=== PATIENT | male | born 1950 | race American Indian/Alaskan Native ===

== ENCOUNTER 2017-01-02 09:56 | Outpatient (CLI) | payer BC ==
[2017-01-02 10:35] LABS: Basophils % (Auto) 0.6 % (0.0-1.8); Eosinophils % (Auto) 0.2 % (0.0-4.3); Hematocrit 32.9 % (35.5-45.6); Hemoglobin 10.2 gm/dl (11.8-15.2); Mean Corpuscular HGB Conc 31 % (32-34); Mean Corpuscular Volume 73 fl (84-94); Platelet Count 297 K/mm3 (140-440); Red Blood Count 4.51 M/mm3 (3.65-5.03); Red Cell Distribution Width 18.8 % (13.2-15.2)
[2017-01-02 10:50] LABS: Mean Corpuscular Hemoglobin 23 pg (28-32)
[2017-01-02 11:06] LABS: Alanine Aminotransferase 14 units/L (7-56); Albumin 3.9 g/dL (3.9-5); Albumin/Globulin Ratio 1.1 %; Alkaline Phosphatase 63 units/L (35-129); Anion Gap 17 mmol/L; BUN/Creatinine Ratio 11.81; Blood Urea Nitrogen 13 mg/dL (9-20); Calcium 10.1 mg/dL (8.4-10.2); Carbon Dioxide 23 mmol/L (22-30); Chloride 106.3 mmol/L (98-107); Cholesterol 170 mg/dL (50-199); Glucose 74 mg/dL (75-100); HDL Cholesterol 56 mg/dL (40-59); LDL Cholesterol,Direct 80 mg/dL (50-130); Potassium 4.1 mmol/L (3.6-5.0); Sodium 142 mmol/L (137-145); Total Protein 7.3 g/dL (6.3-8.2); Triglycerides 171 mg/dL (2-149)
[2017-01-02 11:16] LABS: Prostate Specific Antigen 4.37 ng/mL (0.00-4.00)
== END 2017-01-02 09:57 | disposition home or self-care (01) ==
LOC: LAB 09:56
PROVIDERS: ATTEND Family Medicine
DX: I10 Essential (primary) hypertension (principal); E78.2 Mixed hyperlipidemia; K21.0 Gastro-esophageal reflux disease with esophagitis
CPT/HCPCS: 36415; 80053; 80061; 84153; 84436; 84443; 84550; 85025; 86140; 86803

== ENCOUNTER 2017-11-06 21:21 | Emergency (ER) | payer BC ==
--- NOTE | 2017-11-06 23:04 | XRay Report ---
FINAL REPORT PROCEDURE: XR KNEE 3V LT TECHNIQUE: LEFT knee radiographs, AP, lateral and sunrise views. CPT 40085 HISTORY: left knee pain COMPARISON: No prior studies are available for comparison. FINDINGS: Fracture (s) and/or Dislocation(s): None . Alignment: Normal . Joint space(s): Normal . Soft tissues: Normal . Bone mineralization: Mild degree osteophyte formation is noted involving tibial femoral and patellofemoral compartments.. Foreign bodies: None . IMPRESSION: No acute fracture Mild degree osteoarthritis.
--- NOTE | 2017-11-07 01:11 | Emergency Department Report ---
ED Extremity Problem HPI - General Chief complaint: Extremity Injury, Lower Stated complaint: LT KNEE PAIN Time Seen by Provider: 11/07/17 01:04 Source: patient Mode of arrival: Ambulatory Limitations: No Limitations - History of Present Illness Initial comments: 67-year-old -[place] male comes in for left knee pain 1 week. Patient reports the pain is on initial getting but none during ambulation. Patient reports has no relief from ibuprofen. Patient does work driving a bus and moving cars. He denies any recent trauma. MD Complaint: extremity pain, joint paint - Related Data Home Medications Medication Instructions Recorded Confirmed Last Taken Quinapril HCl [Accupril] 1 tab PO DAILY 11/06/17 11/06/17 Unknown amLODIPine 5 mg PO DAILY 11/06/17 11/06/17 Unknown Previous Rx's Medication Instructions Recorded Last Taken Type Naproxen [Naprosyn TAB] 500 mg PO BID #60 tablet 11/07/17 Unknown Rx Allergies Allergy/AdvReac Type Severity Reaction Status Date / Time codeine Allergy Seizure Unverified 01/02/17 09:57 ED Review of Systems ROS: Stated complaint: LT KNEE PAIN Other details as noted in HPI Constitutional: denies: chills, fever Eyes: denies: eye pain, eye discharge, vision change ENT: denies: ear pain, throat pain Respiratory: denies: cough, shortness of breath, wheezing Cardiovascular: denies: chest pain, palpitations Endocrine: no symptoms reported Gastrointestinal: denies: abdominal pain, nausea, diarrhea Genitourinary: denies: urgency, dysuria Musculoskeletal: arthralgia Skin: denies: rash, lesions Neurological: denies: headache, weakness, paresthesias Psychiatric: denies: anxiety, depression Hematological/Lymphatic: denies: easy bleeding, easy bruising ED Past Medical Hx - Past Medical History Hx Hypertension: Yes - Surgical History Past Surgical History?: No - Social History Smoking Status: Never Smoker Substance Use Type: None - Medications Home Medications: Home Medications Medication Instructions Recorded Confirmed Last Taken Type Quinapril HCl [Accupril] 1 tab PO DAILY 11/06/17 11/06/17 Unknown History amLODIPine 5 mg PO DAILY 11/06/17 11/06/17 Unknown History Naproxen [Naprosyn TAB] 500 mg PO BID #60 tablet 11/07/17 Unknown Rx ED Physical Exam - General Limitations: No Limitations General appearance: alert, in no apparent distress - Head Head exam: Present: atraumatic, normocephalic - Eye Eye exam: Present: normal appearance - Respiratory Respiratory exam: Present: normal lung sounds bilaterally. Absent: respiratory distress - Cardiovascular Cardiovascular Exam: Present: regular rate, normal rhythm. Absent: systolic murmur, diastolic murmur, rubs, gallop - Expanded Lower Extremity Exam Left Hip exam: Present: normal inspection, full ROM Upper Leg exam: Present: normal inspection, full ROM Knee exam: Present: normal inspection, full ROM, crepidus. Absent: tenderness, swelling Lower Leg exam: Present: normal inspection, full ROM. Absent: tenderness, swelling Ankle exam: Present: normal inspection, full ROM. Absent: tenderness, swelling Foot/Toe exam: Present: normal inspection Gait: Positive: observed and normal - Back Exam Back exam: Present: normal inspection - Neurological Exam Neurological exam: Present: alert, oriented X3 - Psychiatric Psychiatric exam: Present: normal affect, normal mood - Skin Skin exam: Present: warm, dry, intact, normal color. Absent: rash ED Course Vital Signs 11/06/17 22:15 Temperature 98.1 F Pulse Rate 84 Respiratory 16 Rate Blood Pressure 167/93 O2 Sat by Pulse 96 Oximetry ED Medical Decision Making - Radiology Data Radiology results: report reviewed, image reviewed IMPRESSION: No acute fracture Mild degree osteoarthritis. - Medical Decision Making Patient's been evaluated by this provider fast track. X-ray shows mild degenerative changes. No dislocation no fractures. Discussed with family and patient that this appears to be arthritis treatment issues E NSAIDs I would discharge patient on naproxen 500 mg twice a day. Discussed the patient he should follow up with orthopedics for further evaluation and treatment options. Critical care attestation.: If time is entered above; I have spent that time in minutes in the direct care of this critically ill patient, excluding procedure time. ED Disposition Clinical Impression: Arthritis of left knee Disposition: DC-01 TO HOME OR SELFCARE Is pt being admited?: No Does the pt Need Aspirin: No Condition: Stable Instructions: Osteoarthritis (ED), Degenerative Disc Disease (ED) Additional Instructions: Take pain medication as prescribed. Please take her blood pressure medicine when you get home. Please follow-up with orthopedics for further evaluation. Prescriptions: Naproxen [Naprosyn TAB] 500 mg PO BID #60 tablet Referrals: NAIDA TUCKER JR, MD [Primary Care Provider] - 3-5 Days DEJAN BETANCOURT MD [Staff Physician] - 3-5 Days WENDY MENDEZ MD [Staff Physician] - 3-5 Days Forms: Work/School Release Form(ED), Accompanied Note
[2017-11-07 01:33] VITALS: BP 158/87
== END 2017-11-07 01:33 | disposition home or self-care (01) ==
LOC: EEVIPCON 21:21 → ED 21:21
DX: M25.562 Pain in left knee (principal); I10 Essential (primary) hypertension; Z88.8 Allergy status to other drugs, medicaments and biological substances
CPT/HCPCS: 99283

== ENCOUNTER 2017-12-24 10:18 | Outpatient (CLI) | payer BC ==
--- NOTE | 2017-12-26 08:19 | Magnetic Resonance Report ---
MRI LEFT KNEE WITHOUT CONTRAST: 12/24/17 10:34:00 CLINICAL: Left knee pain. TECHNIQUE: Sagittal proton density, sagittal T2 fat sat, coronal T1, coronal and axial proton density fat sat and sagittal gradient T2*sequences on a 1.5 Elaine magnet. FINDINGS: Complex tear of the posterior horn medial meniscus with signal extending to both superior and inferior articular surfaces. No displaced fragment. The lateral meniscus is intact. Intact anterior cruciate ligament and intact posterior cruciate ligament. Marrow edema of the medial tibial plateau but no fracture. Moderate osteoarthritis with narrowing of both medial and lateral joint spaces with small osteophytes. Full-thickness thinning of the medial femoral cartilage. The lateral femoral cartilage is intact. Chondromalacia of the patella with full-thickness thinning of the lateral patellar cartilage. The collateral ligaments are intact. A moderate size knee joint effusion. The patellar tendon and retinaculum are intact. The popliteal veins are greatly distended with abnormal T2 hyperintense signal and the popliteal vein is distended with mixed signal. The peroneal veins are nondistended. Focal mixed signal in the medial aspect of the medial head of the gastrocnemius muscle suggests muscle injury with a small hematoma. Moderate subcutaneous soft tissue edema at the level of the proximal tibia. IMPRESSION: 1. Complex tear of the posterior horn medial meniscus. 2. Bone contusion versus chronic marrow edema of the medial tibial plateau. 3. Moderate osteoarthritis of the medial and lateral joints. 4. Chondromalacia patellae. 5. No ligamentous injury. 6. Distended popliteal veins are consistent with venous stasis but also suggest the possibility of deep vein thrombosis.
== END 2017-12-24 10:19 | disposition home or self-care (01) ==
LOC: MRI 10:18
PROVIDERS: ATTEND Orthopaedic Surgery
DX: M17.12 Unilateral primary osteoarthritis, left knee (principal); M22.42 Chondromalacia patellae, left knee; I10 Essential (primary) hypertension; S83.242A Other tear of medial meniscus, current injury, left knee, initial encounter; X58.XXXA Exposure to other specified factors, initial encounter; Y93.89 Activity, other specified; Y92.89 Other specified places as the place of occurrence of the external cause; Y99.8 Other external cause status
CPT/HCPCS: 73721

== ENCOUNTER 2018-01-20 07:13 | Day surgery (SDC) | payer BC ==
[2018-01-20] MEDS ORDERED: NACL BACTERIOSTATIC INFILTRATI ONE (07:42)
[2018-01-20] MEDS ORDERED: DEMEROL IV PRN (07:45)
[2018-01-20] MEDS ORDERED: TORADOL IV PRN (07:45)
[2018-01-20] MEDS ORDERED: ZOFRAN IV PRN (07:45)
[2018-01-20] MEDS ORDERED: DILAUDID IV PRN (07:45)
--- NOTE | 2018-01-20 07:47 | Anesthesia Consultation ---
Anesthesia Consult and Med Hx Date of service: 01/20/18 - Airway Anesthetic Teeth Evaluation: Good ROM Head & Neck: Adequate Mental/Hyoid Distance: Adequate Mallampati Class: Class II Intubation Access Assessment: Probably Good - Pulmonary Exam CTA: Yes - Cardiac Exam Cardiac Exam: RRR - Pre-Operative Health Status ASA Pre-Surgery Classification: ASA2 Proposed Anesthetic Plan: General (GA with LMA ok, GERD contolled) - Pulmonary Hx Smoking: No Hx Sleep Apnea: No (ROYA PRE SCREEN HIGH RISK.) - Cardiovascular System Hx Hypertension: Yes (X 10 YRS) - Other Systems Hx Cancer: No
--- NOTE | 2018-01-20 07:47 | Anesthesia Day of Surgery ---
Anesthesia Day of Surgery - Day of Surgery Patient Examined: Yes Patient H&P Reviewed: Yes Patient is NPO: Yes
[2018-01-20] MEDS ORDERED: DIPRIVAN 10 MG/ML IV ONE (07:55)
[2018-01-20] MEDS ORDERED: REGLAN ONE (07:55)
[2018-01-20] MEDS ORDERED: XYLOCAINE MPF 2% ONE (07:55)
[2018-01-20] MEDS ORDERED: SUBLIMAZE ONE (07:55)
[2018-01-20] MEDS ORDERED: VERSED IV NR (08:00)
[2018-01-20] MEDS ORDERED: NEURONTIN PO NR (08:00)
[2018-01-20] MEDS ORDERED: LACTATED RINGERS 1,000 ML IV SCH ×2 (08:00)
[2018-01-20] MEDS ORDERED: NACL 0.9% IR ONE ×2 (08:25)
[2018-01-20] MEDS ORDERED: MARCAINE-EPI/PF 0.5%-1:200,000 IJ ONE (08:25)
[2018-01-20] MEDS ORDERED: DEPO-MEDROL INTRA-ARTI ONE (08:25)
[2018-01-20] MEDS ORDERED: ANCEF/STERILE WATER 2 GM/20 ML IV NR (09:00)
[2018-01-20] MEDS ORDERED: LACTATED RINGERS 1,000 ML ONE (09:02)
[2018-01-20] MEDS ORDERED: MARCAINE-EPI 0.5%-1:200,000 INFILTRATI ONE (09:02)
[2018-01-20] MEDS ORDERED: DEPO-MEDROL ONE (09:02)
--- NOTE | 2018-01-20 11:55 | Post Anesthesia Evaluation ---
- Post Anesthesia Evaluation Patient Participated: Yes Airway Patent: Yes Stable Respiratory Function: Yes Nausea/Vomiting: No Temp > 96.8F: Yes Pain Manageable: Yes Adequeate Hydration: Yes Anesthesia Complications: No
[2018-01-20 14:28] VITALS: BP 148/93
--- NOTE | 2018-01-20 14:32 | Procedure Note ---
Date of procedure: 01/20/18 Pre-op diagnosis: internal derangement left knee Post-op diagnosis: other (medial meniscus tear grade 3 chondromalacia medial compartment) Procedure: Arthroscopy left knee partial medial meniscectomy and abrasion chondroplasty medial compartment Procedure The patient was brought to the OR and placed on the OR table in supine position following induction and intubation by anesthesia the patient's left lower extremity was prepped and draped in the usual sterile manner. A timeout procedure was done to identify the patient and the correct operative site. The leg was exsanguinated followed by inflation of the pneumatic tourniquet to 300 mmHg routine arthroscopic portals were made about the patella tendon following introduction of the arthroscope and insufflation of the joint with normal saline solution examination revealed these findings the patient was noted to have grade 3-3 chondromalacia involving both the medial femoral condyle and a corresponding tibial articular surfaces there is also a horizontal cleavage tear noted in the posterior horn of the medial meniscus the anterior cruciate ligament was intact the lateral compartment was explored the patient was there is having a intact lateral meniscus and some grade 1-2 changes in the articular surface in the lateral compartment following this the suprapatellar pouch was examined no loose bodies or other pathology was seen here. The arthroscopic shaver was introduced into the knee joint nexy the articular cartilage was then debrided back to healthy-appearing cartilage tissue followed by debridement of the posterior horn of the medial meniscus using a combination of biting forceps and the 4.0 shaver again care was taken to remove only tissue did appear to flap in and out of the knee joint following debridement the knee was copiously irrigated with saline solution the arthroscope was removed and the stab wound were repaired A mixture of Depo-Medrol and Marcaine was injected followed by placing routine postoperative dressings and Brett wraps to the thigh in the area the patient tolerated the procedure there were no complications he was sent to postanesthesia recovery in stable condition Anesthesia: GETA Surgeon: WENDY MENDEZ Estimated blood loss: none Pathology: list Condition: stable Disposition: PACU
== END 2018-01-20 11:25 | disposition home or self-care (01) ==
LOC: OR 07:13
PROVIDERS: ATTEND Orthopaedic Surgery
DX: S83.242A Other tear of medial meniscus, current injury, left knee, initial encounter (principal); M94.262 Chondromalacia, left knee; M23.92 Unspecified internal derangement of left knee; I10 Essential (primary) hypertension; K21.9 Gastro-esophageal reflux disease without esophagitis; X58.XXXA Exposure to other specified factors, initial encounter; Y93.89 Activity, other specified; Y92.89 Other specified places as the place of occurrence of the external cause; Y99.8 Other external cause status; Z88.5 Allergy status to narcotic agent
CPT/HCPCS: 29882; A4217; J0690; J1030; J1885; J2250; J2405; J2704; J2765; J3010; J7120; J1040

== ENCOUNTER 2018-06-18 07:47 | Day surgery (SDC) | payer BC ==
[2018-06-18] MEDS ORDERED: XYLOCAINE 2% INFILTRATI ONE (08:20)
[2018-06-18] MEDS ORDERED: DEPO-Medrol ONE (08:21)
[2018-06-18] MEDS ORDERED: MARCAINE 0.5% INFILTRATI ONE ×3 (08:21→08:47)
[2018-06-18 08:27] VITALS: BP 152/84
[2018-06-18] MEDS ORDERED: XYLOCAINE 1% 20 mL ONE ×2 (08:40→08:42)
[2018-06-18] MEDS ORDERED: XYLOCAINE 1% 20 mL INFILTRATI ONE ×2 (08:46)
--- NOTE | 2018-06-18 09:18 | Procedure Note ---
Date of procedure: 06/18/18 Pre-op diagnosis: chronic left knee pain Post-op diagnosis: same Procedure: Left Geniculate Nerve Block under C-arm fluroscopy procedure The patient taken to the radiology fluroscopy suite where he was place on the table supine with padded triangular pad placed along the potileal fossa. The left knee prepped and draped in usual sterile fashion. 22-gauge spinal needle used to locate areas for injection, the medial and lateral supracondylar ridges as well as the medial border of the proximal tibia. These areas were anesthized using lidocaine 1% followed by placement of spinal needle near the medial, and lateral geniculate nerves. A mixture of marcaine and lidocaine injected into the deeper structures. There were no complications noted and he tolerated well. Anesthesia: local Surgeon: WENDY MENDEZ Estimated blood loss: minimal Pathology: none Condition: stable Disposition: observation
--- NOTE | 2018-06-19 15:43 | XRay Report ---
XRAY LEFT KNEE FOUR INTRAOPERATIVE FLUOROSCOPIC VIEWS: 06/18/18 07:47:00 CLINICAL: Left knee pain. FINDINGS: No fracture or dislocation. The joint spaces are preserved. Initial images show placement of a needle just superior to the medial condyle. Subsequent images demonstrate a needle just superior to the lateral femoral condyle and the final image shows a needle projected over the proximal tibia at the level of the tibial tubercle. For more detail, please refer to the operative report.
--- NOTE | 2018-12-22 14:05 | History and Physical Report ---
History of Present Illness Date of examination: 06/18/18 Chief complaint: This 67-year-old male with a history of left knee pain and swelling patient recently underwent left left knee arthroscopy with partial medial meniscectomy and abrasion chondroplasty postoperatively patient continued to complain of pain mainly along the medial joint line therefore recommendations were made for a geniculate nerve block and possible radiofrequency ablation Past History Past Medical History: arthritis, hypertension Past Surgical History: arthroscopy Social history: no significant social history Family history: no significant family history Medications and Allergies Allergies Allergy/AdvReac Type Severity Reaction Status Date / Time codeine Allergy Anaphylaxis Verified 08/12/18 11:37 Home Medications Medication Instructions Recorded Confirmed Last Taken Type Quinapril HCl [Accupril] 1 tab PO DAILY 11/06/17 08/12/18 08/11/18 21:00 History Omeprazole 40 mg PO DAILY 01/13/18 08/12/18 08/11/18 21:00 History Glucosamine HCl 500 mg PO QDAY 01/20/18 08/12/18 06/21/18 09:00 History amLODIPine/ATORVASTATIN [Caduet 5 1 each PO QDAY 01/20/18 08/12/18 08/11/18 21:00 History mg-10 mg Tablet] HYDROcodone/APAP 5-325 [Fruita 1 each PO Q4HR PRN #20 tablet 06/23/18 08/12/18 Unknown Rx 5-325 mg TAB] Apixaban [Eliquis] 5 mg PO BID #60 tab.ds.pk 08/14/18 Unknown Rx Apixaban [Eliquis] 10 mg PO BID 7 Days tablet 08/14/18 Unknown Rx Ferrous Gluconate [Fergon 325 MG 325 mg PO QDAY #30 tablet 08/14/18 Unknown Rx tab] Physical Examination - Physical exam Narrative exam: PHYSICAL examination significant muscles, findings relates to the left lower extremity hair patient's nausea have tenderness along the medial joint line with us valgus deformity active range of motion full there is crepitus noted on active and passive range of motion ligaments appeared stable Eyes: PERRL ENT: Positive: clear oral mucosa Respiratory effort: normal Respiratory: bilateral: CTA Rhythm: regular Heart Sounds: Positive: S1 & S2 General gastrointestinal: Positive: soft, non-tender, non-distended, normal bowel sounds Integumentary: clear, warm, dry Neurologic: Positive: CNII-XII intact, moves all extremities, gait normal. Negative: focal deficits - Cervical Spine Neck pain: none Tenderness with palpation: none Full ROM: yes ROM: flexion: normal ROM: extension: normal ROM: rotation right: normal ROM: rotation left: normal ROM: lateral flexion right: normal ROM: lateral flexion left: normal - Lumbar Spine Back pain: none Tenderness with palpation: none Appearance: normal Full ROM: yes ROM: flexion: normal ROM: extension: normal ROM: rotation right: normal ROM: rotation left: normal ROM: lateral flexion right: normal ROM: lateral flexion left: normal Results - Labs Labs: All other labs normal. Assessment and Plan Persistent left knee pain Recommend geniculate nerve block
== END 2018-06-18 09:04 | disposition home or self-care (01) ==
LOC: OR 07:47
PROVIDERS: ATTEND Orthopaedic Surgery
DX: M25.562 Pain in left knee (principal); G89.29 Other chronic pain; I10 Essential (primary) hypertension; K21.9 Gastro-esophageal reflux disease without esophagitis; M19.90 Unspecified osteoarthritis, unspecified site; Z79.899 Other long term (current) drug therapy; Z79.01 Long term (current) use of anticoagulants; Z79.82 Long term (current) use of aspirin; Z88.5 Allergy status to narcotic agent; Z91.81 History of falling
CPT/HCPCS: J1030

== ENCOUNTER 2018-07-21 06:57 | Day surgery (SDC) | payer BC ==
[2018-07-21] MEDS ORDERED: WATER FOR IRRIG STERILE IR ONE (07:32)
[2018-07-21] MEDS ORDERED: WATER FOR IRRIG STERILE ONE (07:32)
--- NOTE | 2018-07-21 07:49 | Anesthesia Day of Surgery ---
Anesthesia Day of Surgery - Day of Surgery Patient Examined: Yes Patient H&P Reviewed: Yes Patient is NPO: Yes Beta Blockers: No Cardiac Clearance: No Pulmonary Clearance: No
--- NOTE | 2018-07-21 07:49 | Anesthesia Consultation ---
Anesthesia Consult and Med Hx Date of service: 07/21/18 - Airway Anesthetic Teeth Evaluation: Good ROM Head & Neck: Adequate Mental/Hyoid Distance: Adequate Mallampati Class: Class III Intubation Access Assessment: Good - Pulmonary Exam CTA: Yes - Cardiac Exam Cardiac Exam: No Murmur - Pre-Operative Health Status ASA Pre-Surgery Classification: ASA3 Proposed Anesthetic Plan: MAC - Pulmonary Hx Smoking: No Hx Asthma: No Hx Respiratory Symptoms: No Hx Sleep Apnea: No (ROYA PRE SCREEN HIGH RISK.) - Cardiovascular System Hx Hypertension: Yes Hx Heart Attack/AMI: No Hx Percutaneous Transluminal Coronary Angioplasty (PTCA): No Hx Cardia Arrhythmia: No - Central Nervous System Hx Seizures: No CVA: No - Gastrointestinal Hx Gastroesophageal Reflux Disease: Yes (well controlled) - Endocrine Hx Renal Disease: No Hx Liver Disease: No Hx Insulin Dependent Diabetes: No Hx Non-Insulin Dependent Diabetes: No Hx Thyroid Disease: No - Other Systems Hx Cancer: No Hx Obesity: No
[2018-07-21] MEDS ORDERED: DIPRIVAN 10 MG/ML IV ONE ×2 (08:16)
--- NOTE | 2018-07-21 09:41 | Operative Report ---
Operative Report Operative Report: Date of procedure: 07/21/2018 Preprocedure diagnosis: Colon cancer screening. Last study over 10 years ago. Post procedure diagnosis: Normal study Procedure: Colonoscopy to the cecum Endoscopist: Dr. Miller Anesthesia: Monitored anesthesia care per anesthesia department Estimated blood loss: 0 Medications: Monitored anesthesia care. See separate report by anesthesia for details. After careful discussion of the nature and purpose of the procedure as well as details of the technique risks benefits and alternatives the patient gave consent. Please see recent history and physical from the office. The patient was placed in the left lateral decubitus position and medicated per anesthesia. A rectal exam was performed sphincter tone was normal there were no masses palpable. The iversityn 570 scope was passed transanally and advanced under continuous direct vision without difficulty to the cecum. The colon was well prepared. The cecum was normal. The ascending colon was normal and on forward and retroflexed views. The transverse colon, descending colon, and sigmoid colon were normal. The rectum was normal on forward and retroflexed views. The procedure was well-tolerated overall and the patient was observed in recovery. Conclusions: Normal colonoscopy to the cecum. Plan: Repeat colonoscopy in 10 years, sooner if clinically indicated. Signed electronically: Adriel Miller M.D.
[2018-07-21] MEDS: NACL 0.9% 1000 ML 1,000 ML IV SCH (09:42)
--- NOTE | 2018-07-21 09:45 | Short Stay Summary ---
Short Stay Documentation Date of service: 07/21/18 Narrative H&P: The patient presents for routine screening colonoscopy. Last study over 10 years ago. - History Past Medical History: arthritis, hyperthyroidism Past Surgical History: Other (hemorrhoid surgery) Social history: no significant social history, , lives with family, no smoking, no alcohol abuse - Allergies and Medications Current Medications: Allergies codeine Allergy (Verified 01/13/18 16:25) Dizziness Home Medications Medication Instructions Recorded Confirmed Last Taken Type Quinapril HCl [Accupril] 1 tab PO DAILY 11/06/17 07/17/18 06/21/18 09:00 History Aspirin [Lo-Dose Aspirin EC] 81 mg PO DAILY 01/13/18 07/17/18 06/20/18 09:00 History Omeprazole 40 mg PO DAILY 01/13/18 07/17/18 06/21/18 09:00 History Glucosamine HCl 500 mg PO QDAY 01/20/18 07/17/18 06/21/18 09:00 History amLODIPine/ATORVASTATIN [Caduet 5 1 each PO QDAY 01/20/18 07/17/18 06/21/18 09:00 History mg-10 mg Tablet] HYDROcodone/APAP 5-325 [Globe 1 each PO Q4HR PRN #20 tablet 06/23/18 07/17/18 Unknown Rx 5-325 mg TAB] Active Medications Sodium Chloride (Nacl 0.9% 1000 Ml) 1,000 mls @ 50 mls/hr IV DIRECT REGAN - Physical exam General appearance: no acute distress, well-nourished Integumentary: no rash, no growths, no abnormal pigmentation HEENT: Atraumatic, PERRLA, EOMI, Mucous membr. moist/pink Lungs: Clear to auscultation Breasts: deferred Heart: Regular rate, Normal S1, Normal S2, No murmurs Gastrointestinal: normoactive bowel sounds, no tenderness, no distended, no masses, no guarding, no organomegaly Male Genitourinary: deferred Rectal Exam: normal exam-external/orifice, normal rectal tone Extremities: no ischemia, pulses intact, pulses symmetrical, No edema, normal temperature, Full ROM Neurological: Normal gait, Normal speech, Strength at 5/5 X4 ext, Normal tone, Sensation intact, Cranial nerves 3-12 NL - Brief post op/procedure progress note Date of procedure: 07/21/18 Findings: see dictation Estimated blood loss: none Pathology: none Condition: stable - Disposition Condition at discharge: Good Disposition: DC-01 TO HOME OR SELFCARE - Discharge Diagnoses (1) Colon cancer screening Status: Acute Short Stay Discharge Plan Activity: other (no driving for 24 hours) Weight Bearing Status: Full Weight Bearing Diet: regular Follow up with: NAIDA TUCKER JR, MD [Primary Care Provider] - 7 Days
[2018-07-21 10:11] VITALS: BP 152/98
[2018-07-22] MEDS: NACL 0.9% 1000 ML 1,000 ML IV SCH (08:01)
== END 2018-07-21 06:58 | disposition home or self-care (01) ==
LOC: GIO 06:57
PROVIDERS: ATTEND Internal Medicine Gastroenterology
DX: K62.5 Hemorrhage of anus and rectum (principal); R63.4 Abnormal weight loss; K64.8 Other hemorrhoids; K21.9 Gastro-esophageal reflux disease without esophagitis; M19.90 Unspecified osteoarthritis, unspecified site; Z91.81 History of falling; Z79.899 Other long term (current) drug therapy; Z79.01 Long term (current) use of anticoagulants; Z79.82 Long term (current) use of aspirin; Z88.5 Allergy status to narcotic agent
CPT/HCPCS: 45378; J2704; J7030

== ENCOUNTER 2018-08-12 08:31 | Inpatient (IN) | payer BC ==
--- NOTE | 2018-08-12 12:20 | Vascular Lab Report ---
FINAL REPORT EXAM: VL VENOUS DUPLEX LE BILAT HISTORY: PAIN IN LOWER RIGHT EXTREMITY COMPARISON: None. TECHNIQUE: Duplex Doppler ultrasound of the veins of the bilateral lower extremities was performed. FINDINGS: There is echogenic thrombus within the right lower common femoral vein, superficial femoral vein, pro alvin branch, and popliteal vein. The right posterior tibial vein and peroneal vein are patent. The left common femoral vein is patent. There is echogenic thrombus in the left superficial femoral v ein, deep femoral vein, and popliteal vein. The left posterior tibial vein and peroneal vein are ruvalcaba nt. IMPRESSION: Deep venous thrombosis involving the right common femoral vein, superficial femoral vein, profunda br anch, and popliteal vein. Deep venous thrombosis involving the left superficial femoral vein, profunda branch, and popliteal ve in. Findings were discussed with Dr. Dozier at 12:19 p.m., Eastern standard time, on 08/12/2018.
--- NOTE | 2018-08-12 12:31 | XRay Report ---
AP CHEST: HISTORY: Hypertension AP view of the chest demonstrates a normal mediastinal and cardiac contour with clear lungs and normal bony and soft tissue structures. IMPRESSION: Unremarkable AP chest.
[2018-08-12 12:37] LABS: Basophils % (Auto) 0.4 % (0.0-1.8); Eosinophils % (Auto) 0.1 % (0.0-4.3); Hematocrit 32.5 % (35.5-45.6); Lymphocytes # (Auto) 1.5 K/mm3 (1.2-5.4); Lymphocytes % (Auto) 36.9 % (13.4-35.0); Mean Corpuscular HGB Conc 31 % (32-34); Mean Corpuscular Volume 75 fl (84-94); Monocytes # (Auto) 0.4 K/mm3 (0.0-0.8); Monocytes % (Auto) 9.6 % (0.0-7.3); Platelet Count 292 K/mm3 (140-440); Red Blood Count 4.36 M/mm3 (3.65-5.03); Red Cell Distribution Width 19.7 % (13.2-15.2)
[2018-08-12 12:49] LABS: INR 0.98 (0.87-1.13); Partial Thromboplastin Time 25.3 Sec. (24.2-36.6)
[2018-08-12 12:56] LABS: Alanine Aminotransferase 10 units/L (7-56); Albumin 3.9 g/dL (3.9-5); BUN/Creatinine Ratio 13; Blood Urea Nitrogen 13 mg/dL (9-20); Calcium 10.3 mg/dL (8.4-10.2); Hemolysis Index 3
[2018-08-12 12:57] LABS: Bilirubin,Direct < 0.2 mg/dL (0-0.2)
--- NOTE | 2018-08-12 14:38 | Emergency Department Report ---
ED General Adult HPI - General Chief complaint: Extremity Problem,Nontraumatic Time Seen by Provider: 08/12/18 12:03 Source: patient Mode of arrival: Ambulatory Limitations: No Limitations - History of Present Illness Initial comments: 68-year-old male with bilateral leg swelling since June. The patient had work on his meniscus done on his left side and "a block of his right knee". He has not had any recent traveling. He went to his primary care doctor who sent him for a ultrasound. His ultrasound was reported to be a proximal DVT of both his lower extremities. He has not had prior DVT or anticoagulation. He denies any chest pain cough or respiratory symptoms. He states that his ankles have been intermittently swollen since June. -: week(s), month(s) Location: lower extremity Quality: aching (mostly complains of swelling only) Consistency: intermittent Improves with: none Worsens with: none Associated Symptoms: denies other symptoms Treatments Prior to Arrival: none - Related Data Home Medications Medication Instructions Recorded Confirmed Last Taken Quinapril HCl [Accupril] 1 tab PO DAILY 11/06/17 07/17/18 06/21/18 09:00 Aspirin [Lo-Dose Aspirin EC] 81 mg PO DAILY 01/13/18 07/17/18 06/20/18 09:00 Omeprazole 40 mg PO DAILY 01/13/18 07/17/18 06/21/18 09:00 Glucosamine HCl 500 mg PO QDAY 01/20/18 07/17/18 06/21/18 09:00 amLODIPine/ATORVASTATIN [[place] 5 1 each PO QDAY 01/20/18 07/17/18 06/21/18 09:0 0 mg-10 mg Tablet] Previous Rx's Medication Instructions Recorded Last Taken Type HYDROcodone/APAP 5-325 [[place] 1 each PO Q4HR PRN #20 tablet 06/23/18 Unknown Rx 5-325 mg TAB] Allergies Allergy/AdvReac Type Severity Reaction Status Date / Time codeine Allergy Anaphylaxis Verified 08/12/18 11:37 ED Review of Systems ROS: Stated complaint: Other details as noted in HPI Constitutional: denies: chills, fever Eyes: denies: eye pain, eye discharge, vision change ENT: denies: ear pain, throat pain Respiratory: denies: cough, shortness of breath, wheezing Cardiovascular: edema. denies: chest pain, palpitations Endocrine: no symptoms reported Gastrointestinal: denies: abdominal pain, nausea, diarrhea Genitourinary: denies: urgency, dysuria Musculoskeletal: as per HPI. denies: back pain, joint swelling, arthralgia Skin: denies: rash, lesions Neurological: denies: headache, weakness, paresthesias Psychiatric: denies: anxiety, depression Hematological/Lymphatic: denies: easy bleeding, easy bruising ED Past Medical Hx - Past Medical History Hx Hypertension: Yes Hx Heart Attack/AMI: No Hx GERD: Yes Hx Liver Disease: No Hx Renal Disease: No Hx Arthritis: Yes Hx Seizures: No Hx Asthma: No Hx HIV: No - Surgical History Past Surgical History?: Yes Additional Surgical History: left knee - Social History Smoking Status: Never Smoker Substance Use Type: Alcohol - Medications Home Medications: Home Medications Medication Instructions Recorded Confirmed Last Taken Type Quinapril HCl [Accupril] 1 tab PO DAILY 11/06/17 07/17/18 06/21/18 09:00 History Aspirin [Lo-Dose Aspirin EC] 81 mg PO DAILY 01/13/18 07/17/18 06/20/18 09:00 History Omeprazole 40 mg PO DAILY 01/13/18 07/17/18 06/21/18 09:00 History Glucosamine HCl 500 mg PO QDAY 01/20/18 07/17/18 06/21/18 09:00 History amLODIPine/ATORVASTATIN [[place] 5 1 each PO QDAY 01/20/18 07/17/18 06/21/18 09:00 History mg-10 mg Tablet] HYDROcodone/APAP 5-325 [[place] 1 each PO Q4HR PRN #20 tablet 06/23/18 07/17/18 Unknown Rx 5-325 mg TAB] ED Physical Exam - General Limitations: No Limitations General appearance: alert, in no apparent distress - Head Head exam: Present: atraumatic, normocephalic - Eye Eye exam: Present: normal appearance. Absent: scleral icterus - ENT ENT exam: Present: mucous membranes moist - Neck Neck exam: Present: normal inspection. Absent: tenderness - Respiratory Respiratory exam: Present: normal lung sounds bilaterally. Absent: respiratory distress - Cardiovascular Cardiovascular Exam: Present: regular rate, normal rhythm. Absent: systolic murmur, diastolic murmur, rubs, gallop - GI/Abdominal GI/Abdominal exam: Present: soft, normal bowel sounds. Absent: distended, tenderness, guarding, rebound - Rectal Rectal exam: Present: deferred - Extremities Exam Extremities exam: Present: normal inspection, pedal edema, other (ankle edema bilaterally). Absent: calf tenderness - Back Exam Back exam: Present: normal inspection. Absent: paraspinal tenderness, vertebral tenderness - Neurological Exam Neurological exam: Present: alert, oriented X3, CN II-XII intact. Absent: motor sensory deficit - Psychiatric Psychiatric exam: Present: normal affect, normal mood - Skin Skin exam: Present: warm, dry, intact, normal color. Absent: rash ED Course Vital Signs 08/12/18 08/12/18 08/12/18 11:37 11:42 11:46 Temperature 98.4 F Pulse Rate 72 71 Respiratory 18 26 H 20 Rate Blood Pressure 169/87 175/91 O2 Sat by Pulse 96 97 Oximetry 08/12/18 08/12/18 12:46 13:44 Temperature Pulse Rate 72 Respiratory 26 H 16 Rate Blood Pressure 165/91 O2 Sat by Pulse 98 96 Oximetry - Reevaluation(s) Reevaluation #1: Discussed with Dr. Felton. He requests hospitalization by the hospitalist service. Patient will be anticoagulated. I will discuss with Dr. Bansal the mode of anticoagulation. 08/12/18 15:21 Reevaluation #2: Discussed with Dr. aBnsal. He requests that I begin Lovenox and admit the patient to [facility]. 08/12/18 15:39 ED Medical Decision Making - Lab Data Result diagrams: 08/12/18 12:15 08/12/18 12:15 Laboratory Results - last 24 hr 08/12/18 08/12/18 08/12/18 12:15 12:15 12:15 WBC 4.2 L RBC 4.36 Hgb 10.0 L Hct 32.5 L MCV 75 L MCH 23 L MCHC 31 L RDW 19.7 H Plt Count 292 Lymph % (Auto) 36.9 H [place] % (Auto) 9.6 H Eos % (Auto) 0.1 Baso % (Auto) 0.4 Lymph # 1.5 [place] # 0.4 Eos # 0.0 Baso # 0.0 Seg Neutrophils % 53.0 Seg Neutrophils # 2.2 PT 13.4 INR 0.98 APTT 25.3 Sodium 138 Potassium 4.0 Chloride 103.8 Carbon Dioxide 23 Anion Gap 15 BUN 13 Creatinine 1.0 Estimated GFR > 60 BUN/Creatinine Ratio 13 Glucose 88 Calcium 10.3 H Total Bilirubin 0.30 Direct Bilirubin < 0.2 Indirect Bilirubin 0.1 AST 18 ALT 10 Alkaline Phosphatase 62 Troponin T < 0.010 NT-Pro-B Natriuret Pep 41.14 Total Protein 7.2 Albumin 3.9 Albumin/Globulin Ratio 1.2 - Radiology Data Radiology results: report reviewed (bilateral proximal DVT) Critical care attestation.: If time is entered above; I have spent that time in minutes in the direct care of this critically ill patient, excluding procedure time. ED Disposition Clinical Impression: DVT, bilateral lower limbs Qualifiers: Affected thrombotic vein of extremity: femoral Chronicity: acute Qualified Code(s): I82.413 - Acute embolism and thrombosis of femoral vein, bilateral Disposition: 09 OP ADMIT IP TO THIS HOSP Is pt being admited?: Yes Does the pt Need Aspirin: No Condition: Stable Referrals: NAIDA TUCKER JR, MD [Primary Care Provider] - 3-5 Days Time of Disposition: 15:23
[2018-08-12] MEDS ORDERED: LOVENOX SUB-Q ONE (16:36)
[2018-08-12] MEDS: LOVENOX SUB-Q SCH ×2 (16:56→21:36)
--- NOTE | 2018-08-13 00:39 | History and Physical Report ---
History of Present Illness Date of examination: 08/12/18 Date of admission: 08/12/18 15:36 Chief complaint: Bilateral lower extremity swelling for 3 weeks to 4 weeks History of present illness: 68-year-old -[place] male was sent from Dr. Fletcher's office for b ilateral DVT in the lower extremities. Patient felt tightness in both the lower extremities from the upper thigh to the region. No shortness of breath. Patient had ultrasound and was found to have bilateral DVTs in both lower extremities. Patient has bilateral leg swelling since June. No recent trauma. Left meniscus surgery. Past Medical History Hx Hypertension: Yes Hx GERD: Yes Hx Arthritis: Yes Surgical History Past Surgical History?: Yes Additional Surgical History: left knee Social History Smoking Status: Never Smoker Substance Use Type: Alcohol Medications Home Medications: Home Medications Medication Instructions Recorded Confirmed Last Taken Type Quinapril HCl [Accupril] 1 tab PO DAILY 11/06/17 07/17/18 06/21/18 09:00 History Aspirin [Lo-Dose Aspirin EC] 81 mg PO DAILY 01/13/18 07/17/18 06/20/18 09:00 History Omeprazole 40 mg PO DAILY 01/13/18 07/17/18 06/21/18 09:00 History Glucosamine HCl 500 mg PO QDAY 01/20/18 07/17/18 06/21/18 09:00 History amLODIPine/ATORVASTATIN [[place] 5 1 each PO QDAY 01/20/18 07/17/18 06/21/18 09:00 History mg-10 mg Tablet] HYDROcodone/APAP 5-325 [[place] 1 each PO Q4HR PRN #20 tablet 06/23/18 07/17/18 Unknown Rx 5-325 mg TAB] Review of Systems ROS: Stated complaint: Other details as noted in HPI Constitutional: denies: chills, fever Eyes: denies: eye pain, eye discharge, vision change ENT: denies: ear pain, throat pain Respiratory: denies: cough, shortness of breath, wheezing Cardiovascular: edema. denies: chest pain, palpitations Endocrine: no symptoms reported Gastrointestinal: denies: abdominal pain, nausea, diarrhea Genitourinary: denies: urgency, dysuria Musculoskeletal: as per HPI. denies: back pain, joint swelling, arthralgia Skin: denies: rash, lesions Neurological: denies: headache, weakness, paresthesias Psychiatric: denies: anxiety, depression Hematological/Lymphatic: denies: easy bleeding, easy bruising Medications and Allergies Allergies Allergy/AdvReac Type Severity Reaction Status Date / Time codeine Allergy Anaphylaxis Verified 08/12/18 11:37 Home Medications Medication Instructions Recorded Confirmed Last Taken Type Quinapril HCl [Accupril] 1 tab PO DAILY 11/06/17 08/12/18 08/11/18 21:00 History Aspirin [Lo-Dose Aspirin EC] 81 mg PO DAILY 01/13/18 08/12/18 06/20/18 09:00 History Omeprazole 40 mg PO DAILY 01/13/18 08/12/18 08/11/18 21:00 History Glucosamine HCl 500 mg PO QDAY 01/20/18 08/12/18 06/21/18 09:00 History amLODIPine/ATORVASTATIN [[place] 5 1 each PO QDAY 01/20/18 08/12/18 08/11/18 21:00 History mg-10 mg Tablet] HYDROcodone/APAP 5-325 [[place] 1 each PO Q4HR PRN #20 tablet 06/23/18 08/12/18 Unknown Rx 5-325 mg TAB] Active Meds: Active Medications Enoxaparin Sodium (Lovenox) 80 mg 1 mg/kg (80 mg) SUB-Q Q12HR REGAN Last Admin: 08/12/18 21:36 Dose: 80 mg Documented by: Exam - Constitutional Vitals: Temp Pulse Resp BP Pulse Ox 98.7 F 97 H 20 152/93 95 08/12/18 20:57 08/12/18 22:00 08/12/18 20:57 08/12/18 20:57 08/12/18 20:57 General appearance: Present: no acute distress, well-nourished - EENT Eyes: Present: PERRL ENT: hearing intact, clear oral mucosa - Neck Neck: Present: supple, normal ROM - Respiratory Respiratory effort: normal Respiratory: bilateral: CTA - Cardiovascular Heart rate: 78 Rhythm: regular Heart Sounds: Present: S1 & S2. Absent: rub, click - Extremities Extremities: no ischemia, pulses intact, pulses symmetrical, No edema, abnormal (bilateral lower extremity swelling from upper thigh to upper cough region) Peripheral Pulses: within normal limits - Abdominal General gastrointestinal: Present: soft, non-tender, non-distended, normal bowel sounds Male genitourinary: Present: normal - Integumentary Integumentary: Present: clear, warm, dry - Musculoskeletal Musculoskeletal: gait normal, strength equal bilaterally - Psychiatric Psychiatric: appropriate mood/affect, intact judgment & insight - Neurologic Neurologic: CNII-XII intact, moves all extremities - Allied Health Allied health notes reviewed: nursing, case management Results - Labs CBC & Chem 7: 08/12/18 12:15 08/12/18 12:15 Labs: Laboratory Last Values WBC 4.2 K/mm3 (4.5-11.0) L 08/12/18 12:15 RBC 4.36 M/mm3 (3.65-5.03) 08/12/18 12:15 Hgb 10.0 gm/dl (11.8-15.2) L 08/12/18 12:15 Hct 32.5 % (35.5-45.6) L 08/12/18 12:15 MCV 75 fl (84-94) L 08/12/18 12:15 MCH 23 pg (28-32) L 08/12/18 12:15 MCHC 31 % (32-34) L 08/12/18 12:15 RDW 19.7 % (13.2-15.2) H 08/12/18 12:15 Plt Count 292 K/mm3 (140-440) 08/12/18 12:15 Lymph % (Auto) 36.9 % (13.4-35.0) H 08/12/18 12:15 [place] % (Auto) 9.6 % (0.0-7.3) H 08/12/18 12:15 Eos % (Auto) 0.1 % (0.0-4.3) 08/12/18 12:15 Baso % (Auto) 0.4 % (0.0-1.8) 08/12/18 12:15 Lymph # 1.5 K/mm3 (1.2-5.4) 08/12/18 12:15 [place] # 0.4 K/mm3 (0.0-0.8) 08/12/18 12:15 Eos # 0.0 K/mm3 (0.0-0.4) 08/12/18 12:15 Baso # 0.0 K/mm3 (0.0-0.1) 08/12/18 12:15 Seg Neutrophils % 53.0 % (40.0-70.0) 08/12/18 12:15 Seg Neutrophils # 2.2 K/mm3 (1.8-7.7) 08/12/18 12:15 PT 13.4 Sec. (12.2-14.9) 08/12/18 12:15 INR 0.98 (0.87-1.13) 08/12/18 12:15 APTT 25.3 Sec. (24.2-36.6) 08/12/18 12:15 Sodium 138 mmol/L (137-145) 08/12/18 12:15 Potassium 4.0 mmol/L (3.6-5.0) 08/12/18 12:15 Chloride 103.8 mmol/L (98-107) 08/12/18 12:15 Carbon Dioxide 23 mmol/L (22-30) 08/12/18 12:15 Anion Gap 15 mmol/L 08/12/18 12:15 BUN 13 mg/dL (9-20) 08/12/18 12:15 Creatinine 1.0 mg/dL (0.8-1.5) 08/12/18 12:15 Estimated GFR > 60 ml/min 08/12/18 12:15 BUN/Creatinine Ratio 13 % 08/12/18 12:15 Glucose 88 mg/dL (75-100) 08/12/18 12:15 Calcium 10.3 mg/dL (8.4-10.2) H 08/12/18 12:15 Total Bilirubin 0.30 mg/dL (0.1-1.2) 08/12/18 12:15 Direct Bilirubin < 0.2 mg/dL (0-0.2) 08/12/18 12:15 Indirect Bilirubin 0.1 mg/dL 08/12/18 12:15 AST 18 units/L (5-40) 08/12/18 12:15 ALT 10 units/L (7-56) 08/12/18 12:15 Alkaline Phosphatase 62 units/L (35-129) 08/12/18 12:15 Troponin T < 0.010 ng/mL (0.00-0.029) 08/12/18 12:15 NT-Pro-B Natriuret Pep 41.14 pg/mL (0-900) 08/12/18 12:15 Total Protein 7.2 g/dL (6.3-8.2) 08/12/18 12:15 Albumin 3.9 g/dL (3.9-5) 08/12/18 12:15 Albumin/Globulin Ratio 1.2 % 08/12/18 12:15 Short CBC 08/12/18 Range/Units 12:15 WBC 4.2 L (4.5-11.0) K/mm3 Hgb 10.0 L (11.8-15.2) gm/dl Hct 32.5 L (35.5-45.6) % Plt Count 292 (140-440) K/mm3 BMP 08/12/18 12:15 Sodium 138 Potassium 4.0 Chloride 103.8 Carbon Dioxide 23 BUN 13 Creatinine 1.0 Glucose 88 Calcium 10.3 H Cardiac Enzymes 08/12/18 Range/Units 12:15 Troponin T < 0.010 (0.00-0.029) ng/mL Liver Function 08/12/18 Range/Units 12:15 Total Bilirubin 0.30 (0.1-1.2) mg/dL Direct Bilirubin < 0.2 (0-0.2) mg/dL AST 18 (5-40) units/L ALT 10 (7-56) units/L Alkaline Phosphatase 62 (35-129) units/L Albumin 3.9 (3.9-5) g/dL - Imaging and Cardiology Chest x-ray: report reviewed (naf) Imaging and Cardiology: Venous duplex scan of both lower extremities PRELIMINARY GIVEN TO Vivi DAVIS at Dr. Felton office; bilat DVT appears to be acute. Was told to take pt to ED. Initialized on 08/12/18 11:28 - END OF NOTE IMPRESSION: Deep venous thrombosis involving the right common femoral vein, superficial f emoral vein, profunda branch, and popliteal vein. Deep venous thrombosis involving the left superficial femoral vein, profunda branch, and popliteal vein. Findings were discussed with Dr. Dozier at 12:19 p.m., Eastern standard time, on 08/12/2018. Assessment and Plan Advance Directives: Yes (full code) VTE prophylaxis?: Chemical Plan of care discussed with patient/family: Yes - Patient Problems (1) DVT, bilateral lower limbs Current Visit: Yes Status: Acute Qualifiers: Affected thrombotic vein of extremity: femoral Chronicity: acute Qualifie d Code(s): I82.413 - Acute embolism and thrombosis of femoral vein, bilateral Plan to address problem: Patient initiated on Lovenox and Coumadin Will defer to primary team regarding ELIQUIS (2) Hypertension Current Visit: Yes Status: Chronic Qualifiers: Hypertension type: essential hypertension Qualified Code(s): I10 - Essential (primary) hypertension Plan to address problem: Continue antihypertensives (3) GERD (gastroesophageal reflux disease) Current Visit: Yes Status: Chronic Qualifiers: Esophagitis presence: without esophagitis Qualified Code(s): K21.9 - Gastro-esophageal reflux disease without esophagitis Plan to address problem: Continue PPIs (4) Anemia Current Visit: Yes Status: Chronic Qualifiers: Anemia type: unspecified type Qualified Code(s): D64.9 - Anemia, unspecified Plan to address problem: Anemia workup (5) DVT prophylaxis Current Visit: Yes Status: Acute Plan to address problem: On Lovenox and GI prophylaxis
[2018-08-13] MEDS ORDERED: PERCOCET 5/325 PO PRN (00:48)
[2018-08-13] MEDS ORDERED: TYLENOL PO PRN (00:48)
[2018-08-13] MEDS ORDERED: ZOFRAN IV PRN (00:48)
[2018-08-13] MEDS ORDERED: SODIUM CHLORIDE FLUSH SYRINGE 10 ML IV PRN (00:48)
[2018-08-13] MEDS ORDERED: DILAUDID IV PRN (00:48)
[2018-08-13] MEDS: LOVENOX SUB-Q SCH ×2 (06:26→17:19)
[2018-08-13] MEDS ORDERED: NORCO 5/325 PO PRN (09:30)
[2018-08-13] MEDS ORDERED: AMLODIPINE PO SCH (10:00)
[2018-08-13] MEDS ORDERED: NON-FORMULARY (Omeprazole [Omeprazole] 40 MG) PO SCH (10:00)
[2018-08-13] MEDS ORDERED: ATORVASTATIN PO SCH (10:00)
[2018-08-13] MEDS ORDERED: GLUCOSAMINE HCL 500 MG PO SCH (10:00)
[2018-08-13] MEDS ORDERED: QUINAPRIL HCL PO SCH (10:00)
[2018-08-13] MEDS: NACL 0.9% 1000 ML 1,000 ML IV SCH ×2 (10:04→22:57)
[2018-08-13] MEDS: HALFPRIN EC PO SCH (10:04)
[2018-08-13] MEDS: SODIUM CHLORIDE FLUSH SYRINGE 10 ML IV SCH ×2 (10:05→22:56)
[2018-08-13] MEDS: NORVASC PO SCH (12:32)
[2018-08-13] MEDS: ZESTRIL PO SCH (12:33)
[2018-08-13] MEDS: PROTONIX PO SCH (12:33)
--- NOTE | 2018-08-13 15:35 | Progress Note ---
Assessment and Plan / DVT, bilateral lower limbs Patient initiated on Lovenox and Coumadin will consult hematology regarding ELIQUIS / Hypertension Continue home antihypertensives, stable / GERD (gastroesophageal reflux disease) Continue PPIs / Anemia, microcytic Anemia workup / DVT prophylaxis On Lovenox and GI prophylaxis Subjective Date of service: 08/13/18 Interval history: patient seen and examined Family at bedside, updated denies any chest pain or SOB Objective - Constitutional Vitals: Vital Signs - 12hr 08/13/18 08/13/18 08/13/18 04:46 07:28 10:00 Temperature 98.5 F Pulse Rate 89 84 84 Respiratory 18 Rate Blood Pressure 153/93 O2 Sat by Pulse 97 Oximetry 08/13/18 08/13/18 08/13/18 12:32 12:33 13:23 Temperature 98.2 F Pulse Rate 84 84 71 Respiratory 18 Rate Blood Pressure 153/93 153/93 162/88 O2 Sat by Pulse 97 Oximetry 08/13/18 13:25 Temperature Pulse Rate Respiratory Rate Blood Pressure 163/98 O2 Sat by Pulse Oximetry General appearance: Present: no acute distress, well-nourished - EENT Eyes: PERRL, EOM intact ENT: hearing intact, clear oral mucosa Ears: bilateral: normal - Neck Neck: supple, normal ROM - Respiratory Respiratory effort: normal Respiratory: bilateral: CTA - Cardiovascular Rhythm: regular Heart Sounds: Present: S1 & S2. Absent: gallop, rub Extremities: pulses intact, No edema, normal color, Full ROM - Gastrointestinal General gastrointestinal: Present: soft, non-tender, non-distended, normal bowel sounds - Integumentary Integumentary: clear, warm, dry - Musculoskeletal Musculoskeletal: 1, strength equal bilaterally - Neurologic Neurologic: moves all extremities - Psychiatric Psychiatric: memory intact, appropriate mood/affect, intact judgment & insight - Labs CBC & Chem 7: 08/14/18 06:47 08/14/18 06:47
[2018-08-13] MEDS ORDERED: COUMADIN PO SCH (17:00)
[2018-08-13 20:16] LABS: % Iron Saturation 8.29 %
[2018-08-14] MEDS: LOVENOX SUB-Q SCH (05:32)
[2018-08-14 07:29] LABS: Basophils % (Auto) 0.4 % (0.0-1.8); Eosinophils % (Auto) 0.3 % (0.0-4.3); Lymphocytes # (Auto) 1.5 K/mm3 (1.2-5.4); Lymphocytes % (Auto) 36.3 % (13.4-35.0); Mean Corpuscular HGB Conc 30 % (32-34); Mean Corpuscular Volume 76 fl (84-94); Monocytes # (Auto) 0.4 K/mm3 (0.0-0.8); Monocytes % (Auto) 9.1 % (0.0-7.3); Platelet Count 260 K/mm3 (140-440); Red Blood Count 4.21 M/mm3 (3.65-5.03); Red Cell Distribution Width 19.6 % (13.2-15.2)
[2018-08-14 07:31] LABS: Hematocrit 31.8 % (35.5-45.6); Hemoglobin 9.6 gm/dl (11.8-15.2)
[2018-08-14 07:39] LABS: INR 0.98 (0.87-1.13)
[2018-08-14 07:57] LABS: Alanine Aminotransferase 10 units/L (7-56); Albumin 3.3 g/dL (3.9-5); BUN/Creatinine Ratio 9; Blood Urea Nitrogen 9 mg/dL (9-20); Calcium 9.8 mg/dL (8.4-10.2); Hemolysis Index 6
[2018-08-14] MEDS: ZESTRIL PO SCH (09:12)
[2018-08-14] MEDS: HALFPRIN EC PO SCH (09:13)
[2018-08-14] MEDS: NORVASC PO SCH (09:13)
[2018-08-14] MEDS: PROTONIX PO SCH (09:15)
[2018-08-14] MEDS: SODIUM CHLORIDE FLUSH SYRINGE 10 ML IV SCH (10:46)
--- NOTE | 2018-08-14 13:28 | Discharge Summary ---
Providers - Providers Date of Admission: 08/12/18 15:36 Date of discharge: 08/14/18 Attending physician: SELENA CID 08/13/18 13:07 Consult to Physician [CONS] Routine Comment: called office/ nat Consulting Provider: GILBERTO AESLEY Physician Instructions: Reason For Exam: b/l DVT Primary care physician: NAIDA TUCKER Hospitalization Condition: Stable Pertinent studies: CXR Venous Doppler Hospital course: 68-year-old -[place] male who was complaining of tightness in both the lower extremities for last 3-4 weeks. Patient had ultrasound and was found to have bilateral DVTs in both lower extremities. He was then sent from Dr. Fletcher's office for definitive management. Discharge diagnosis and management: / DVT, bilateral lower limbs Patient initiated on Lovenox and Coumadin Consulted hematology, changed to ELIQUIS on discharge He will f/u with hematology outpt / Hypertension Continue home antihypertensives, stable / GERD (gastroesophageal reflux disease) Continue PPIs / Anemia, microcytic Anemia workup /Intermittent borderline tachycardia and tachypnea - likely from stress, no infectoius etiology suspected, no fever /leukopenia, could be chronic, f/u outpt / DVT prophylaxis, On Lovenox Disposition: DC-01 TO HOME OR SELFCARE Time spent for discharge: 32 minutes Core Measure Documentation - Palliative Care Palliative Care/ Comfort Measures: Not Applicable - Core Measures Any of the following diagnoses?: none Exam - Constitutional Vitals: Temp Pulse Resp BP Pulse Ox 98.5 F 75 18 154/87 97 08/14/18 02:39 08/14/18 10:00 08/14/18 02:39 08/14/18 09:13 08/14/18 02:39 General appearance: Present: no acute distress, well-nourished - EENT Eyes: Present: PERRL ENT: hearing intact, clear oral mucosa - Neck Neck: Present: supple, normal ROM - Respiratory Respiratory effort: normal Respiratory: bilateral: CTA - Cardiovascular Heart Sounds: Present: S1 & S2. Absent: rub, click - Extremities Extremities: pulses symmetrical, No edema Peripheral Pulses: within normal limits - Abdominal General gastrointestinal: Present: soft, non-tender, non-distended, normal bowel sounds - Integumentary Integumentary: Present: clear, warm, dry - Musculoskeletal Musculoskeletal: gait normal, strength equal bilaterally - Psychiatric Psychiatric: appropriate mood/affect, intact judgment & insight - Neurologic Neurologic: CNII-XII intact, moves all extremities Plan Activity: advance as tolerated Weight Bearing Status: Non-Weight Bearing Diet: low fat, low salt Follow up with: NAIDA TUCKER JR, MD [Primary Care Provider] - 3-5 Days GILBERTO EASLEY MD [Staff Physician] - 7 Days Prescriptions: Apixaban [Eliquis] 10 mg PO BID 7 Days tablet Apixaban [Eliquis] 5 mg PO BID #60 tab.ds.pk Ferrous Gluconate [Fergon 325 MG tab] 325 mg PO QDAY #30 tablet
[2018-08-14 15:24] LABS: Iron 19 ug/dL (49-181); Total Iron Binding Capacity 351 mcg/dL (250-450)
--- NOTE | 2018-08-14 19:30 | Event Note ---
Date: 08/14/18 [id number]
--- NOTE | 2018-08-15 00:34 | Consultation ---
REFERRED BY: Viridiana Shi MD REASON FOR CONSULTATION: Bilateral lower extremity deep venous thrombosis. HISTORY OF PRESENT ILLNESS: I saw the patient is a 68-year-old male in the medical floor. The patient has been having leg swelling for a few weeks. In the past, this had gone down and elevation and disappeared after some time, but for the last 3-4 weeks, he has been having bilateral leg swelling. He went to Dr. Fletcher's office because of tightness in the lower extremities from upper thigh region to down. No chest pain, no shortness of breath. Venous Doppler was done that showed bilateral femoral DVT, 1 superficial femoral, 1 common femoral. No recent history of long distance travel. No recent surgeries. The patient is a nonsmoker. No personal or family history of DVT or PE. The patient has been started on anticoagulation. PAST MEDICAL HISTORY: Hypertension, GERD, arthritis. PAST SURGICAL HISTORY: Left knee surgery. SOCIAL HISTORY: Nonsmoker. HOME MEDICATIONS: Accupril, omeprazole, amlodipine, atorvastatin, hydrocodone. REVIEW OF SYSTEMS: No fever or chills. No ear discharge. No vision changes. No chest pain, no shortness of breath, no cough, no palpitations, no hematemesis, no hematochezia. No nausea, vomiting, diarrhea. No rash. No seizure or syncope. ALLERGIES: CODEINE. PHYSICAL EXAMINATION: VITAL SIGNS: Temperature 98, pulse 82, respirations 18, BP 147/91. HEENT: Mild pallor, no icterus. NECK: No neck lymph nodes. HEART: S1, S2. LUNGS: Clear to auscultation. ABDOMEN: Soft. EXTREMITIES: Bilateral leg edema present. NEUROLOGIC: Alert, awake, oriented. LABORATORY DATA: White cell 4, hemoglobin 9.6, MCV 75, platelet 260. PT, PTT normal. Potassium 3.9, creatinine 1, calcium 9.8, serum iron 19, bilirubin 0.3, AST 16, ALT 10. Vitamin B12 of 1042. RADIOLOGY: Lower extremity Doppler, thrombus right lower common femoral vein and left superficial femoral vein. ASSESSMENT AND PLAN: 1. Bilateral lower extremity deep venous thrombosis. No chest pain, shortness of breath. The patient was started on Lovenox and Coumadin. I discussed with the patient regarding Eliquis. 2. Microcytic anemia, low iron and discussed with the patient regarding the same. The patient has had a colonoscopy. He has not had esophagogastroduodenoscopy. 3. Oral iron supplementation discussed. 4. History of hypertension. I will see the patient in the clinic setting. JOB# [id number] RIANNA/NTS
[2018-08-16 11:43] VITALS: BP 154/87
== END 2018-08-14 15:30 | disposition home or self-care (01) | DRG 301 ==
LOC: ED 08:31 → VAS 08:31 → EDSTATUS 09:00 → 2B-ACE 15:36
PROVIDERS: ADMIT Internal Medicine; ATTEND Internal Medicine
DX: I82.413 Acute embolism and thrombosis of femoral vein, bilateral (principal); I10 Essential (primary) hypertension; K21.9 Gastro-esophageal reflux disease without esophagitis; D50.9 Iron deficiency anemia, unspecified; D72.819 Decreased white blood cell count, unspecified; R00.0 Tachycardia, unspecified; R06.82 Tachypnea, not elsewhere classified; M19.90 Unspecified osteoarthritis, unspecified site; Z72.89 Other problems related to lifestyle; Z79.82 Long term (current) use of aspirin; Z79.899 Other long term (current) drug therapy; Z88.5 Allergy status to narcotic agent
CPT/HCPCS: 36415; 71045; 80048; 80053; 80076; 82607; 82747; 83036; 83550; 83880; 84484; 85025; 85610; 85730; 93005; 93010; 93970; G0378; A9270-GY; J1650; J7030

== ENCOUNTER 2018-09-09 10:14 | Outpatient (CLI) | payer BC ==
[2018-09-09 11:14] LABS: C-Reactive Protein 0.1 mg/dL (0.00-1.30); Chol/HDL Ratio 3.21 %
== END 2018-09-09 10:15 | disposition home or self-care (01) ==
LOC: LAB 10:14
PROVIDERS: ATTEND Internal Medicine Hematology & Oncology
DX: I82.409 Acute embolism and thrombosis of unspecified deep veins of unspecified lower extremity (principal); I10 Essential (primary) hypertension; K21.9 Gastro-esophageal reflux disease without esophagitis; M19.90 Unspecified osteoarthritis, unspecified site
CPT/HCPCS: 36415; 80061; 83036; 83516; 84153; 85220; 85305; 85307; 86140

== ENCOUNTER 2019-06-02 10:38 | Outpatient (CLI) | payer BC ==
[2019-06-02 11:32] LABS: Basophils % (Auto) 0.6 % (0.0-1.8); Eosinophils % (Auto) 0.1 % (0.0-4.3); Hematocrit 51.2 % (35.5-45.6); Hemoglobin 17.1 gm/dl (11.8-15.2); Lymphocytes # (Auto) 1.5 K/mm3 (1.2-5.4); Lymphocytes % (Auto) 33.6 % (13.4-35.0); Mean Corpuscular HGB Conc 34 % (32-34); Mean Corpuscular Volume 95 fl (84-94); Monocytes # (Auto) 0.3 K/mm3 (0.0-0.8); Monocytes % (Auto) 7.7 % (0.0-7.3); Platelet Count 232 K/mm3 (140-440); Red Blood Count 5.37 M/mm3 (3.65-5.03); Red Cell Distribution Width 14.6 % (13.2-15.2)
[2019-06-02 11:45] LABS: BUN/Creatinine Ratio 13; Blood Urea Nitrogen 13 mg/dL (9-20)
[2019-06-02 11:46] LABS: Alanine Aminotransferase 16 units/L (7-56); Albumin 4.5 g/dL (3.9-5); Chol/HDL Ratio 4.71 %; HDL Cholesterol 63 mg/dL (40-59); Hemolysis Index 7; LDL Cholesterol,Direct 230 mg/dL (50-130)
[2019-06-05 13:46] LABS: Vitamin D, 25-OH, D2 <4 ng/mL
== END 2019-06-02 10:39 | disposition home or self-care (01) ==
LOC: LAB 10:38
PROVIDERS: ATTEND Internal Medicine
DX: Z13.220 Encounter for screening for lipoid disorders (principal); Z12.5 Encounter for screening for malignant neoplasm of prostate; Z13.21 Encounter for screening for nutritional disorder; Z13.1 Encounter for screening for diabetes mellitus
CPT/HCPCS: 36415; 80053; 80061; 82306; 82607; 83036; 84153; 84443; 85025

== ENCOUNTER 2019-09-15 12:13 | Outpatient (CLI) | payer BC ==
[2019-09-15 12:31] LABS: Basophils % (Auto) 0.6 % (0.0-1.8); Eosinophils % (Auto) 0.2 % (0.0-4.3); Hematocrit 47.2 % (35.5-45.6); Hemoglobin 15.5 gm/dl (11.8-15.2); Lymphocytes # (Auto) 1.4 K/mm3 (1.2-5.4); Lymphocytes % (Auto) 35.1 % (13.4-35.0); Mean Corpuscular HGB Conc 33 % (32-34); Mean Corpuscular Volume 97 fl (84-94); Monocytes # (Auto) 0.4 K/mm3 (0.0-0.8); Monocytes % (Auto) 10.5 % (0.0-7.3); Platelet Count 234 K/mm3 (140-440); Red Blood Count 4.85 M/mm3 (3.65-5.03); Red Cell Distribution Width 14.1 % (13.2-15.2)
[2019-09-15 12:41] LABS: Chol/HDL Ratio 2.84 %
== END 2019-09-15 12:14 | disposition home or self-care (01) ==
LOC: LAB 12:13
PROVIDERS: ATTEND Internal Medicine
DX: E78.5 Hyperlipidemia, unspecified (principal); E83.52 Hypercalcemia; D75.1 Secondary polycythemia
CPT/HCPCS: 36415; 80061; 82330; 85025

== ENCOUNTER 2020-06-07 09:37 | Outpatient (CLI) | payer BC ==
[2020-06-07 10:07] LABS: Basophils % (Auto) 0.1 % (0.0-1.8); Eosinophils % (Auto) 0.2 % (0.0-4.3); Hematocrit 48.9 % (35.5-45.6); Hemoglobin 16.4 gm/dl (11.8-15.2); Lymphocytes # (Auto) 1.6 K/mm3 (1.2-5.4); Lymphocytes % (Auto) 38.3 % (13.4-35.0); Mean Corpuscular HGB Conc 34 % (32-34); Mean Corpuscular Volume 99 fl (84-94); Monocytes # (Auto) 0.3 K/mm3 (0.0-0.8); Platelet Count 221 K/mm3 (140-440); Red Blood Count 4.95 M/mm3 (3.65-5.03); Red Cell Distribution Width 13.9 % (13.2-15.2)
[2020-06-07 10:29] LABS: Alanine Aminotransferase 23 units/L (7-56); Albumin 4.1 g/dL (3.9-5); BUN/Creatinine Ratio 11; Blood Urea Nitrogen 10 mg/dL (9-20); Calcium 10.6 mg/dL (8.4-10.2); HDL Cholesterol 62 mg/dL (40-59); Hemolysis Index 10; LDL Cholesterol,Direct 92 mg/dL (50-130)
== END 2020-06-07 09:38 | disposition home or self-care (01) ==
LOC: LAB 09:37
PROVIDERS: ATTEND Internal Medicine
DX: R73.03 Prediabetes (principal); E55.9 Vitamin D deficiency, unspecified; E78.5 Hyperlipidemia, unspecified; Z00.00 Encounter for general adult medical examination without abnormal findings
CPT/HCPCS: 36415; 80053; 80061; 82306; 83036; 84153; 84443; 85025

== ENCOUNTER 2020-08-04 11:37 | Outpatient (CLI) | payer BC | END 2020-08-04 11:38 | disposition home or self-care (01) | LOC: LAB 11:37 | PROVIDERS: ATTEND Urology | DX: R97.20 Elevated prostate specific antigen [PSA] (principal) | CPT/HCPCS: 36415; 84153 ==

== ENCOUNTER 2020-10-18 08:58 | Outpatient (CLI) | payer BC | END 2020-10-18 08:59 | disposition home or self-care (01) | LOC: LAB 08:58 | PROVIDERS: ATTEND Internal Medicine | DX: Z13.29 Encounter for screening for other suspected endocrine disorder (principal); N52.9 Male erectile dysfunction, unspecified | CPT/HCPCS: 36415; 82330; 83718; 83970 ==

== ENCOUNTER 2020-11-08 09:00 | Outpatient (CLI) | payer BC ==
--- NOTE | 2020-11-08 13:23 | Ultrasound Report ---
ULTRASOUND THYROID INDICATION / CLINICAL INFORMATION: HYPERPARATHYROIDISM,UNSPECIFIED. COMPARISON: None available. FINDINGS: RIGHT LOBE: Size (cm) = 3.9 x 1.3 x 1.5 cm. LEFT LOBE: Size (cm) = 3.3 x 1.7 x 1.2 cm. ISTHMUS: Thickness (cm) = 0.3 cm. APPEARANCE: Normal. SMALL NODULES < 1 cm: Multiple subcentimeter hypoechoic nodules within the left inferior lobe. The la rgest of these measures 7 mm. NODULES >= 1 cm or SUSPICIOUS FEATURES (up to 4): None. LYMPH NODES: No abnormal lymph nodes. PARATHYROID GLANDS: No abnormal parathyroid glands. ADDITIONAL FINDINGS: None. IMPRESSION: 1. No suspicious thyroid nodules. 2. Subcentimeter nodules within the left inferior lobe, as above. ACR TI-RADS Thyroid Nodule Recommendations TI-RADS 1 (0 pts) -- BENIGN. - No Fine Needle Aspirate biopsy (FNA) or follow-up. TI-RADS 2 (1-2 pts) -- NOT SUSPICIOUS. - No FNA or follow-up. TI-RADS 3 (3 pts) -- MILDLY SUSPICIOUS. - >= 2.5 cm: FNA. - 1.5-2.4 cm: Follow up at 1, 3, 5 years. - < 1.5 cm: No follow up. TI-RADS 4 (4-6 pts) -- MODERATELY SUSPICIOUS. - >= 1.5 cm: FNA. - 1.0-1.4 cm: Follow up at 1, 2, 3, 5 years. - < 1.0 cm: No follow up. TI-RADS 5 (7+ pts) -- HIGHLY SUSPICIOUS. - >= 1.0 cm: FNA. - 0.5-0.9 cm: Follow annually for 5 years. - 0.5 cm: No follow up. REFERENCE: ACR Thyroid Imaging, Reporting and Data System (TI-RADS): White Paper of the ACR TI-RADS C ommittee. J AM Bettina Radiol 2017;14:587-595. NOTE: Nodules < 1 cm do not typically require follow-up or FNA unless there are suspicious features. NOTE: Nodule size maximum dimension determines whether a given lesion should be biopsied or followed. NOTE: If multiple nodules meet criteria for FNA, only the two (2) most suspicious nodules should be b iopsied. In addition, FNA of any suspicious cervical nodes should be biopsied. NOTE: Predominantly Cystic nodules and Spongiform nodules, composed predominantly (>50%) of small cys tic spaces, are considered benign (TI-RADS 1) regardless of other criteria. Scribed by: Stephenie Duran RDMS, RVT Scribed: 11/08/2020 9:50 AM Signer Name: Dannie Bonner MD Signed: 11/08/2020 11:34 AM Workstation Name: [email or web address]
== END 2020-11-08 09:01 | disposition home or self-care (01) ==
LOC: US 09:00
PROVIDERS: ATTEND Internal Medicine
DX: E04.1 Nontoxic single thyroid nodule (principal); E21.3 Hyperparathyroidism, unspecified
CPT/HCPCS: 76536

== ENCOUNTER 2020-11-15 14:06 | Outpatient (CLI) | payer BC ==
[2020-11-15 15:03] LABS: Alanine Aminotransferase 23 units/L (7-56); Albumin 4.1 g/dL (3.9-5); BUN/Creatinine Ratio 18; Blood Urea Nitrogen 16 mg/dL (9-20); Hemolysis Index 4
[2020-11-20 12:56] LABS: Vitamin D, 25-OH, D2 35 ng/mL
== END 2020-11-15 14:07 | disposition home or self-care (01) ==
LOC: LAB 14:06
PROVIDERS: ATTEND Internal Medicine Endocrinology, Diabetes & Metabolism
DX: E55.9 Vitamin D deficiency, unspecified (principal); E83.52 Hypercalcemia; E21.3 Hyperparathyroidism, unspecified
CPT/HCPCS: 36415; 80053; 82306; 82330; 83970

== ENCOUNTER 2020-11-30 07:13 | Outpatient (CLI) | payer BC ==
[2020-11-30 08:48] LABS: Creatinine 24 Hour,Urine 1.4 (0.8-2.8); Creatinine,Urine 194.4 mg/dL (0.1-20.0)
== END 2020-11-30 07:14 | disposition home or self-care (01) ==
LOC: LAB 07:13
PROVIDERS: ATTEND Internal Medicine Endocrinology, Diabetes & Metabolism
DX: E83.52 Hypercalcemia (principal)
CPT/HCPCS: 36415; 82570

== ENCOUNTER 2021-02-02 11:29 | Outpatient (CLI) | payer BC | END 2021-02-02 11:30 | disposition home or self-care (01) | LOC: LAB 11:29 | PROVIDERS: ATTEND Internal Medicine | DX: R97.20 Elevated prostate specific antigen [PSA] (principal) | CPT/HCPCS: 36415; 84153 ==

== ENCOUNTER 2021-02-28 12:49 | Outpatient (CLI) | payer BC ==
[2021-02-28 13:51] LABS: Alanine Aminotransferase 27 units/L (7-56); Albumin 4.1 g/dL (3.9-5); BUN/Creatinine Ratio 13; Blood Urea Nitrogen 13 mg/dL (9-20); Calcium 10.6 mg/dL (8.4-10.2); Hemolysis Index 12
[2021-03-05 12:56] LABS: Vitamin D, 25-OH, D2 10 ng/mL
== END 2021-02-28 12:50 | disposition home or self-care (01) ==
LOC: LAB 12:49
PROVIDERS: ATTEND Internal Medicine Endocrinology, Diabetes & Metabolism
DX: E83.52 Hypercalcemia (principal)
CPT/HCPCS: 36415; 80053; 82306; 83970

== ENCOUNTER 2021-05-02 07:36 | Outpatient (CLI) | payer BC ==
[2021-05-02 08:13] LABS: Blood Urea Nitrogen 13 mg/dL (9-20)
--- NOTE | 2021-05-02 09:14 | Cat Scan Report ---
CT NECK WITH INTRAVENOUS CONTRAST AND MULTIPLANAR RECONSTRUCTION CLINICAL HISTORY: LOCALIZED SWELLING ,MASS 100 ml omni 300 TECHNIQUE: 2.5 mm thick contiguous axial scans were obtained from the skull base down to the aortic arch during intravenous contrast administration. In addition to evaluation of axial source images sagittal and co thais multiplanar reconstructions were produced and reviewed for this report. Contrast dose report: Omnipaque 300:100 ML administered intravenously All CT imaging studies performed at this facility utilize dose modulation, iterative reconstruction o r weight based dosing, if appropriate, to obtain the lowest achievable radiation dose. FINDINGS: AIRWAY: No abnormalities are seen along the course of the airway. Nasopharynx, oropharynx, hypopharyn x, larynx and visualized portions of the subglottic airway all have an unremarkable appearance. LYMPH NODES: Small, normal-sized lymph nodes are observed in level 1A, level I B and level 2. There i s no indication of cervical lymphadenopathy. ORAL CAVITY/FLOOR OF MOUTH: Portions of the tongue are obscured by beam hardening artifact due to den sherif amalgam. Abnormalities are seen in evaluation of the oral cavity and tongue. The floor the mouth has a normal appearance. MAJOR SALIVARY GLANDS: The submandibular salivary glands have an abnormal appearance bilaterally. Mil d enlargement of the submandibular salivary glands is demonstrated bilaterally. Dilatation of the int raglandular ductal structures is observed bilaterally. In addition small stones are present in both s ubmandibular salivary glands. Ductal ectasia within the submandibular salivary glands is an unusual f inding. Differential diagnostic considerations include chronic sialoadenitis due to sialolithiasis or Tawana's duct structures, Sjogren's syndrome and idiopathic. There is no indication of inflammatory change in the adjacent fat. Possibility of acute sialoadenitis is considered unlikely. Administratio n of intravenous contrast decreases sensitivity in the detection of ductal sialolithiasis. No definit e ductal stones are identified. The parotid glands have a normal appearance. NASAL CAVITY AND PARANASAL SINUSES: Evaluation of the nasal cavity reveals no abnormality. The parana brett sinuses are free from inflammatory mucosal disease. ORBITS:No abnormalities of the visualized portions of the orbits are identified. Globes, optic nerves , extraocular muscles and lacrimal glands have an unremarkable appearance. THYROID GLAND: The thyroid gland is normal in size and homogeneous in attenuation. No focal thyroid l esions are identified. TEMPORAL BONES:Mastoid air cells are normally pneumatized. CERVICAL SPINE: Evaluation of the cervical spine reveals no significant abnormality. Normal alignment is maintained. No significant degenerative changes are identified. LUNG APICES: Evaluation of the lung apices reveals no abnormality. There is no indication of lung nod ule or infiltrate. Ectasia of the thoracic aorta is noted. This is incompletely evaluated. The visual ized portions of the superior mediastinum have an otherwise unremarkable appearance. CONTRAST ADMINISTRATION: Enhancement of normal vascular structures is demonstrated. No areas of abnor mal contrast enhancement are identified. IMPRESSION: 1. Abnormal appearance of the submandibular salivary glands with intraglandular ductal ectasia bilate rally as described above. Please refer to the above discussion. Correlation with the location of the patient's symptoms is suggested. Signer Name: Jaime Cmapo MD Signed: 05/02/2021 9:10 AM Workstation Name: [id number]
== END 2021-05-02 07:37 | disposition home or self-care (01) ==
LOC: CT 07:36
PROVIDERS: ATTEND Internal Medicine
DX: E21.3 Hyperparathyroidism, unspecified (principal); R22.1 Localized swelling, mass and lump, neck; I77.810 Thoracic aortic ectasia
CPT/HCPCS: 36415; 70491; 82565; 84520; Q9967

== ENCOUNTER 2021-06-13 11:05 | Outpatient (CLI) | payer BC ==
[2021-06-13 11:38] LABS: Basophils % (Auto) 0.4 % (0.0-1.8); Eosinophils % (Auto) 0.2 % (0.0-4.3); Hemoglobin 15.7 gm/dl (11.8-15.2); Lymphocytes # (Auto) 1.6 K/mm3 (1.2-5.4); Mean Corpuscular HGB Conc 32 % (32-34); Mean Corpuscular Volume 97 fl (84-94); Monocytes # (Auto) 0.3 K/mm3 (0.0-0.8); Monocytes % (Auto) 7.9 % (0.0-7.3); Platelet Count 224 K/mm3 (140-440); Red Blood Count 5.03 M/mm3 (3.65-5.03); Red Cell Distribution Width 14.2 % (13.2-15.2)
[2021-06-13 12:04] LABS: Alanine Aminotransferase 32 units/L (7-56); Albumin 4.2 g/dL (3.9-5); BUN/Creatinine Ratio 13; Blood Urea Nitrogen 13 mg/dL (9-20); Calcium 10.6 mg/dL (8.4-10.2); Chol/HDL Ratio 2.66 %; HDL Cholesterol 60 mg/dL (40-59); Hemolysis Index 5; LDL Cholesterol,Direct 84 mg/dL (50-130)
== END 2021-06-13 11:06 | disposition home or self-care (01) ==
LOC: LAB 11:05
PROVIDERS: ATTEND Internal Medicine
DX: Z00.00 Encounter for general adult medical examination without abnormal findings (principal); Z13.29 Encounter for screening for other suspected endocrine disorder; R73.03 Prediabetes; E78.5 Hyperlipidemia, unspecified; D75.1 Secondary polycythemia
CPT/HCPCS: 36415; 80053; 80061; 82306; 83036; 84443; 85025

== ENCOUNTER 2021-08-09 09:20 | Outpatient (CLI) | payer BC | END 2021-08-09 09:21 | disposition home or self-care (01) | LOC: LAB 09:20 | PROVIDERS: ATTEND Urology | DX: N40.0 Benign prostatic hyperplasia without lower urinary tract symptoms (principal) | CPT/HCPCS: 36415; 84153 ==

== ENCOUNTER 2021-12-26 08:43 | Outpatient (CLI) | payer BC ==
[2021-12-26 11:40] LABS: Chol/HDL Ratio 2.67 %
== END 2021-12-26 08:44 | disposition home or self-care (01) ==
LOC: LAB 08:43
PROVIDERS: ATTEND Internal Medicine
DX: R73.03 Prediabetes (principal); E78.5 Hyperlipidemia, unspecified
CPT/HCPCS: 36415; 80061; 83036

== ENCOUNTER 2022-01-29 11:16 | Outpatient (CLI) | payer BC | END 2022-01-29 11:17 | disposition home or self-care (01) | LOC: LAB 11:16 | PROVIDERS: ATTEND Urology | DX: R97.20 Elevated prostate specific antigen [PSA] (principal) | CPT/HCPCS: 36415; 84153 ==

== ENCOUNTER 2022-02-27 07:00 | Day surgery (SDC) | payer BC ==
[2022-02-26 09:27] LABS: Hematocrit 48.4 % (35.5-45.6); Hemoglobin 16.2 gm/dl (11.8-15.2); Mean Corpuscular HGB Conc 33 % (32-34); Mean Corpuscular Volume 98 fl (84-94); Platelet Count 215 K/mm3 (140-440); Red Blood Count 4.96 M/mm3 (3.65-5.03); Red Cell Distribution Width 14.3 % (13.2-15.2)
[2022-02-26 09:49] LABS: Alanine Aminotransferase 36 units/L (7-56); Albumin 4.2 g/dL (3.9-5); BUN/Creatinine Ratio 13; Blood Urea Nitrogen 14 mg/dL (9-20); Calcium 10.9 mg/dL (8.4-10.2); Hemolysis Index 11
[~2022-02-27 07:00] MED LIST: LACTATED RINGERS 1,000 ML IV SCH
[2022-02-27] MEDS ORDERED: ceFAZolin/Water 2 GM/20 ML 2 GM/20 ML SYRINGE IV ONE (08:03)
[2022-02-27] MEDS ORDERED: ceFAZolin/STERILE WATER 2 GM/20 ML SYRINGE IV NR (09:00)
[2022-02-27] MEDS ORDERED: ONDANSETRON 4 MG/2 ML INJ ONE (09:09)
[2022-02-27] MEDS ORDERED: dexAMETHasone 20 MG/5 ML VIAL ONE (09:09)
[2022-02-27] MEDS ORDERED: LIDOCAINE MPF (2%) 20 MG/1 ML VIAL 5 ML ONE (09:09)
[2022-02-27] MEDS ORDERED: propofoL 200 MG/20 ML VIAL IV ONE (09:10)
[2022-02-27] MEDS ORDERED: HYDROmorphone 0.5 MG/0.5 ML INJ ONE (09:10)
[2022-02-27] MEDS ORDERED: HYDROcodone/ACETAMINOPHEN 5-325 MG TAB PO PRN (09:13)
[2022-02-27] MEDS ORDERED: HYDROmorphone 0.5 MG/0.5 ML INJ IV PRN (09:13)
--- NOTE | 2022-02-27 09:13 | Anesthesia Consultation ---
Anesthesia Consult and Med Hx Date of service: 02/27/22 - Airway Anesthetic Teeth Evaluation: Good ROM Head & Neck: Adequate Mental/Hyoid Distance: Adequate Mallampati Class: Class III Intubation Access Assessment: Possibly Difficult - Pre-Operative Health Status ASA Pre-Surgery Classification: ASA2 Proposed Anesthetic Plan: General - Pulmonary Hx Smoking: No Hx Respiratory Symptoms: No Hx Sleep Apnea: No - Cardiovascular System Hx Hypertension: Yes (took amlodipine this morning) Hx Heart Attack/AMI: No Hx Percutaneous Transluminal Coronary Angioplasty (PTCA): No - Central Nervous System CVA: No - Gastrointestinal Hx Gastroesophageal Reflux Disease: Yes (controlled) - Endocrine Hx Renal Disease: No Hx Liver Disease: No Hx Insulin Dependent Diabetes: No Hx Non-Insulin Dependent Diabetes: No Hx Thyroid Disease: No - Additional Comments Anesthesia Medical History Comments: No hx anesthetic complications. Off ASA x 5days.
--- NOTE | 2022-02-27 09:13 | Anesthesia Day of Surgery ---
Anesthesia Day of Surgery - Day of Surgery Patient Examined: Yes Patient H&P Reviewed: Yes Patient is NPO: Yes
[2022-02-27] MEDS ORDERED: WATER FOR IRRIG STERILE 2000 ML IR ONE (10:04)
[2022-02-27] MEDS ORDERED: WATER FOR IRRIG STERILE 1,500 ML BOTTLE IR ONE (10:05)
--- NOTE | 2022-02-27 11:13 | Short Stay Summary ---
Short Stay Documentation - History H&P: obtained from office - Allergies and Medications Current Medications: Allergies codeine Allergy (Verified 08/12/18 11:37) Anaphylaxis Home Medications Medication Instructions Recorded Confirmed Last Taken Type Quinapril HCl [Accupril] 40 mg PO DAILY 11/06/17 02/25/22 08/11/18 21:00 History amLODIPine/ATORVASTATIN [Caduet 5 10 mg PO QDAY 01/20/18 02/25/22 08/11/18 21:00 History mg-10 mg Tablet] Aspirin [[place] Aspirin EC] 81 mg PO DAILY 02/22/22 02/22/22 Unknown History Multi Vitamin-One A Day 1 tab PO DAILY 02/22/22 02/25/22 Unknown History Active Medications Hydrocodone Bitart/Acetaminophen (Hydrocodone/Acetaminophen 5-325 Mg Tab) 2 each PO ONCE PRN PRN Reason: Pain, Moderate (4-6) Stop: 02/27/22 13:00 Hydromorphone HCl (Hydromorphone 0.5 Mg/0.5 Ml Inj) 0.5 mg IV Q10MIN PRN PRN Reason: Pain , Severe (7-10) Stop: 02/27/22 20:00 Lactated Ringer's (Lactated Ringers) 1,000 mls @ 100 mls/hr IV DIRECT REGAN Stop: 02/27/22 23:59 - Brief post op/procedure progress note Date of procedure: 02/27/22 Pre-op diagnosis: elevated psa, bph Post-op diagnosis: other (bulbar stricture) Procedure: cysto, urethral dilation, pus 30cc, prostte bx, rpg Anesthesia: GETA Surgeon: JOSSIE FAITH Estimated blood loss: minimal Specimen disposition: to lab (prostate cores) Condition: stable - Hospital course Hospital course: ultram & macrobid on chart - Disposition Condition at discharge: Stable Disposition: 01 HOME / SELF CARE / HOMELESS Short Stay Discharge Plan Follow up with: SANDY NUÑEZ MD [Primary Care Provider] - 7 Days
[2022-02-27 11:57] VITALS: BP 140/84
--- NOTE | 2022-02-27 12:22 | Operative Report ---
DATE OF SURGERY: 02/27/2022 PREOPERATIVE DIAGNOSES: Elevated PSA, benign prostatic hypertrophy. POSTOPERATIVE DIAGNOSES: Elevated PSA, benign prostatic hypertrophy, urethral stricture. PROCEDURES: Cystoscopy, urethral dilatation, bilateral retrograde pyelograms, prostate ultrasound, biopsy of prostate (30 grams). SURGEON: Charbel Jim MD ANESTHESIA: General. ESTIMATED BLOOD LOSS: Minimal. FLUIDS: Crystalloid. COMPLICATIONS: No complications. INDICATIONS: This patient is a 71-year-old gentleman seen in the office with an elevated PSA 4.8. Repeat PSA was 8 by his primary care. He also has some BPH symptoms. He presents now for surgical intervention. Risks, benefits, complications were explained. DESCRIPTION OF PROCEDURE: The patient was taken to the operative suite, placed in a supine position. After adequate general anesthesia, placed in the dorsal lithotomy position, prepped and draped in a sterile fashion. Pancystourethroscopy was performed with 22-Tuvaluan Storz cystoscope. The patient was noted to have a tight bulbar stricture. A 0.035 Glidewire was placed. Urethral dilatation to 20-Tuvaluan was then. I was then able to advance the 22-Tuvaluan cystoscope without difficulty. He did have some mild trilobar obstruction. Bladder, no tumors or stones were noted, did have mild trabeculation. Both ureteral orifices in normal position. Bilateral retrograde pyelograms were obtained with an 8-Tuvaluan [place] catheter and 8 mL of contrast. No filling defects or obstruction. Next, using a transrectal ultrasound, biplanar imaging was obtained. No lesions could be appreciated, a 30-gram gland could be appreciated. Twelve core biopsies were taken, 4 from the base, 4 from the mid, and 4 from the apex. The patient tolerated the procedure well, did have some edema at the stricture site and therefore, I left a 20-Tuvaluan [place] tip catheter. Rectal exam was benign. He was extubated and taken to the recovery room. He will go home on Macrobid and Ultram. TID: [id number] RECEIPT: [id number] MIGUEL/ELAINE
--- NOTE | 2022-02-27 13:53 | Fluoroscopy Report ---
INTRAOPERATIVE FLUOROSCOPY: RETROGRADE UROGRAPHY INDICATION / CLINICAL INFORMATION: CYSTOSCOPY W/ BILAT RPG AND PROSTATE BIOPSY. TECHNIQUE: Intraoperative spot images were obtained during the procedure. FINDINGS: Images show bilateral retrograde urography See operative/procedure note by performing physician for full details. Fluoroscopy Time: 15 seconds. Fluoroscopy Images: 5. Signer Name: Baudilio Hall MD Signed: 02/27/2022 1:49 PM Workstation Name: [email or web address]
--- NOTE | 2022-02-27 15:35 | Ultrasound Report ---
Transrectal prostate Ultrasound HISTORY: Prostate biopsy. Surgical guidance TECHNIQUE: Grayscale and color imaging performed. COMPARISON: None IMPRESSION: Ultrasound guidance provided for prostatic biopsy. Prostate volume is 26.4 mL. Heterogene ous appearance. Please refer to the operative note for complete details. Signer Name: Saurabh Díaz MD Signed: 02/27/2022 3:31 PM Workstation Name: [id number]
== END 2022-02-27 07:01 | disposition home or self-care (01) ==
LOC: OR 07:00
PROVIDERS: ATTEND Urology
DX: R97.20 Elevated prostate specific antigen [PSA] (principal); C61 Malignant neoplasm of prostate; N40.0 Benign prostatic hyperplasia without lower urinary tract symptoms; N35.819 Other urethral stricture, male, unspecified site; N35.812 Other bulbous urethral stricture, male; I10 Essential (primary) hypertension; K21.9 Gastro-esophageal reflux disease without esophagitis; D64.9 Anemia, unspecified; E78.00 Pure hypercholesterolemia, unspecified; M19.90 Unspecified osteoarthritis, unspecified site; Z88.5 Allergy status to narcotic agent; Z79.899 Other long term (current) drug therapy; Z20.822 Contact with and (suspected) exposure to COVID-19; Z79.82 Long term (current) use of aspirin; Z86.718 Personal history of other venous thrombosis and embolism; Z91.81 History of falling; Z98.890 Other specified postprocedural states; Z80.1 Family history of malignant neoplasm of trachea, bronchus and lung; Z82.49 Family history of ischemic heart disease and other diseases of the circulatory system
CPT/HCPCS: 36415; 52281; 55700; 74420; 76872; 80053; 85027; 88305; C1726; C1758; C1769; J0690; J1100; J1170; J2405; J2704; J7120; Q9967; U0003

== ENCOUNTER 2022-04-04 08:10 | Outpatient (CLI) | payer BC ==
--- NOTE | 2022-04-04 10:06 | Cat Scan Report ---
CT ABDOMEN AND PELVIS WITHOUT CONTRAST INDICATION / CLINICAL INFORMATION: C61. Malignant neoplasm of prostate TECHNIQUE: Axial CT images were obtained through the abdomen and pelvis without IV contrast. All CT scans at this location are performed using CT dose reduction for ALARA by means of automated exposure control. COMPARISON: None available. FINDINGS: LOWER CHEST: Left greater than right bibasilar scarring/atelectasis. LIVER: Multiple lobulated low densities favor cyst/hamartomas. GALLBLADDER: No significant abnormality. BILE DUCTS: No significant abnormality. PANCREAS: No significant abnormality. SPLEEN: No significant abnormality. ADRENALS: Left medial adrenal limb lobulated small nodule measuring at least 2.1 x 1.6 cm of intermed iate density HE 20 RIGHT KIDNEY / URETER: Hemorrhagic right upper pole cyst (HU 76. LEFT KIDNEY / URETER: No significant abnormality. STOMACH / SMALL BOWEL: No significant abnormality. COLON: No significant abnormality. APPENDIX: No significant abnormality. PERITONEUM: No free fluid. No free air. No fluid collection. LYMPH NODES: No significant adenopathy. AORTA / ARTERIES: No significant abnormality. IVC / VEINS: No significant abnormality. URINARY BLADDER: No significant abnormality. REPRODUCTIVE ORGANS: Prostate is enlarged. ADDITIONAL FINDINGS: Fat-containing left inguinal hernia. SKELETAL SYSTEM: No significant abnormality. IMPRESSION: 1. Enlarged prostate without CT evidence of osseous or lymph node distant disease. There is an interm ediate left adrenal nodule, with slightly irregular appearance. PET/CT or biopsy are recommended give n new finding and malignancy history. Signer Name: Geo Gutiérrez MD Signed: 04/04/2022 10:01 AM Workstation Name: [email or web address]
--- NOTE | 2022-04-04 12:54 | Nuclear Medicine Report ---
NUCLEAR MEDICINE BONE SCAN, WHOLE BODY INDICATION: C61. Initial staging of prostate cancer. TECHNIQUE: 27.1 mCi of Tc-99m MDP were injected IV. Whole body images were obtained. Coned-down imag es of the pelvis were also obtained. COMPARISON: CT abdomen pelvis without contrast performed the same day. FINDINGS: Skeletal Structures: Fairly symmetric, likely degenerative uptake is present involving the shoulders , sternoclavicular joints and knees. Skeletal Lesions: None. Soft Tissues: Normal. Kidneys: Normal, symmetric activity. Additional Findings: Contamination in the perineum is noted on the whole body images but absent on th e coned-down images of the pelvis. IMPRESSION: No evidence for osseous metastasis. Degenerative findings as described.. Signer Name: Ja Feliz Jr, MD Signed: 04/04/2022 12:49 PM Workstation Name: [id number]
== END 2022-04-04 08:11 | disposition home or self-care (01) ==
LOC: NM 08:10
PROVIDERS: ATTEND Urology
DX: C61 Malignant neoplasm of prostate (principal); K40.90 Unilateral inguinal hernia, without obstruction or gangrene, not specified as recurrent
CPT/HCPCS: 74176; 78306; A9503